=== PATIENT | female | born 1945 ===

== ENCOUNTER 2025-01-12 11:23 | Day surgery (SDC) | payer MEDICARE, BC ==
[~2025-01-12] VITALS: Ht 160 cm; Wt 114.8 kg
[~2025-01-12 11:23] MED LIST: Balanced Salt Epinephrine Irrigation Solution 500 mL IR SCH; Moxifloxacin HCL 0.5 MG/0.1 ML 0.4MLSYR LEFTEYE SCH; NS 500 ML IV ONE; PHENYLEPHRINE\\TROPICAMIDE\\TETRACAINE OPHTHALMIC DILATING SOLN LEFTEYE PRN; Povidone-Iodine 450 DROP/30 ML Solution LEFTEYE SCH; Povidone-Iodine 450 DROP/30 ML Solution ONE; Tetracaine HCl/Pf 0.5% Opth Soln 4 ml ONE; Triamcinolone Inj Susp 40 MG / ML 1ML Vial INJ SCH; Triamcinolone Inj Susp 40 MG / ML 1ML Vial ONE
--- NOTE | 2025-01-12 12:32 | NUR ---
01/12/25 Misa Kolb NOTE ON CHART NOTES THAT PATIENT HAS ALLERGY TO "ALL KELVIN" BUT NOTE FROM DR GAMING'S OFFICE STATES PATIENT CAN RECEIVE TOPICAL LIDOCAINE AND THEREFORE CAN RECEIVE TETRACAINE EYE DROPS. PER NOTE FROM PRE-OP CLINIC PER PHARMACY TETRACAINE EYE DROPS ARE CONSIDERED "TOPICAL LIDOCAINE". THIS RN VERIFIED WITH PATIENT THAT SHE CAN RECEIVE TOPICAL LIDOCAINE AND THEREFORE THE TETRACAINE DROPS, PATIENT VERBALIZED "YES, I CAN HAVE TOPICAL LIDOCAINE".
[2025-01-12] MEDS ORDERED: HYDCHL25 PO (12:37)
[2025-01-12] MEDS ORDERED: LOSARTAN POTASS25 M2 PO (12:38)
[2025-01-12] MEDS ORDERED: KLOR-CON M1010 MEQ PO (12:38)
[2025-01-12] MEDS ORDERED: METO50ER PO (12:40)
[2025-01-12] MEDS ORDERED: STOOL SOFTENER (12:40)
[2025-01-12] MEDS ORDERED: BENFOTIAMINE (12:41)
[2025-01-12] MEDS ORDERED: THIAMINE (12:41)
[2025-01-12] MEDS ORDERED: VITAMIN D3 (12:41)
[2025-01-12] MEDS ORDERED: MAGNESIUM COMPLEX (12:41)
[2025-01-12] MEDS ORDERED: PSYLLIUM (12:42)
[2025-01-12] MEDS ORDERED: ALLEGRA ALLERG180 MG PO (12:42)
[2025-01-12] MEDS ORDERED: [UNRECOGNIZED DRUG - OTHER] (12:42)
[2025-01-12] MEDS ORDERED: KRILL OIL500 MG PO (12:43)
[2025-01-12] MEDS ORDERED: RED YEAST RICE (12:43)
[2025-01-12] MEDS ORDERED: NS 500 ML IV ONE (12:45)
[2025-01-12] MEDS ORDERED: Midazolam HCl 1MG / ML 2ML Vial ONE (13:07)
== END 2025-01-12 13:55 | disposition home or self-care (01) ==
LOC: ORSCSDS 11:23
PROVIDERS: Ophthalmology
PROC: 08RK3JZ Replacement of Left Lens with Synthetic Substitute, Percutaneous Approach (ICD-10-PCS; principal; 2025-01-12 13:00)
DX: H25.813 Combined forms of age-related cataract, bilateral (principal); I10 Essential (primary) hypertension; E66.9 Obesity, unspecified; Z68.41 Body mass index [BMI] 40.0-44.9, adult; Z79.899 Other long term (current) drug therapy
CPT/HCPCS: J2250; J3301; J7040; V2632

== ENCOUNTER 2025-01-19 10:50 | Day surgery (SDC) | payer MEDICARE, BC ==
[~2025-01-19] VITALS: Ht 160 cm; Wt 114.4 kg
[~2025-01-19 10:50] MED LIST changes: +ALLEGRA ALLERG180 MG PO; +BENFOTIAMINE; +HYDCHL25 PO; +KLOR-CON M1010 MEQ PO; +KRILL OIL500 MG PO; +LOSARTAN POTASS25 M2 PO; +MAGNESIUM COMPLEX; +METO50ER PO; -Moxifloxacin HCL 0.5 MG/0.1 ML 0.4MLSYR LEFTEYE SCH; +Moxifloxacin HCL 0.5 MG/0.1 ML 0.4MLSYR RIGHTEYE SCH; -PHENYLEPHRINE\\TROPICAMIDE\\TETRACAINE OPHTHALMIC DILATING SOLN LEFTEYE PRN; +PHENYLEPHRINE\\TROPICAMIDE\\TETRACAINE OPHTHALMIC DILATING SOLN RIGHTEYE PRN; +PSYLLIUM; -Povidone-Iodine 450 DROP/30 ML Solution LEFTEYE SCH; +Povidone-Iodine 450 DROP/30 ML Solution RIGHTEYE SCH; +RED YEAST RICE; +STOOL SOFTENER; +THIAMINE; +VITAMIN D3; +[UNRECOGNIZED DRUG - OTHER]
[2025-01-19] MEDS ORDERED: NS 500 ML IV ONE (11:52)
--- NOTE | 2025-01-19 11:54 | NUR ---
01/19/25 1154 Rosita Lynn IN AT 1140 PLEMARTHA IN AT [address]
[2025-01-19] MEDS ORDERED: Midazolam HCl 1MG / ML 2ML Vial ONE (12:16)
== END 2025-01-19 13:00 | disposition home or self-care (01) ==
LOC: ORSCSDS 10:50
PROVIDERS: Ophthalmology
PROC: 08RJ3JZ Replacement of Right Lens with Synthetic Substitute, Percutaneous Approach (ICD-10-PCS; principal; 2025-01-19 13:00)
DX: H25.811 Combined forms of age-related cataract, right eye (principal); Z96.1 Presence of intraocular lens; I10 Essential (primary) hypertension; E66.9 Obesity, unspecified; Z68.41 Body mass index [BMI] 40.0-44.9, adult; Z79.899 Other long term (current) drug therapy
CPT/HCPCS: J2250; J3301; J7040; V2632